=== PATIENT | male | born 1950 | race Caucasian/White ===

== ENCOUNTER 2017-07-01 11:45 | Inpatient (IN) ==
[2017-07-01] MEDS ORDERED: TYLENOL PO PRN (14:39)
[2017-07-01] MEDS ORDERED: ZOFRAN IV PRN (14:39)
[2017-07-01] MEDS ORDERED: VENTOLIN HFA INH PRN (14:46)
[2017-07-01 15:19] LABS: MANUAL DIFF NEEDED? NO
[2017-07-01 15:21] LABS: BASO% 0.6 % (0.0-0.8); EOS# 0.12 X1000 (0.0-0.7); EOS% 1.3 % (0.0-10.0); HEMATOCRIT 45.1 % (42.0-52.0); HEMOGLOBIN 14.7 g/dL (14.0-18.0); IMM GRAN# 0.02 X1000 (0.0-0.04); IMM GRAN% 0.2 % (0.0-0.5); LYMPH# 2.26 X1000 (1.2-3.4); LYMPH% 25.1 % (20.5-51.1); MCH 31.3 PG (27-31); MCHC 32.6 g/dL (33-37); MONO# 0.67 X1000 (0.11-0.59); MONO% 7.5 % (1.7-9.3); MPV 12.4 FL (7.4-10.4); NEUT% 65.3 % (42.2-75.2); PLT 217 X1000 (130-400)
[2017-07-01 15:43] LABS: ALBUMIN 3.8 g/dL (3.5-5.0); CALCIUM 8.7 mg/dL (8.8-10.2); POTASSIUM 3.9 mmol/L (3.5-5.1); TOTAL BILIRUBIN 0.9 mg/dL (0.20-1.00); TOTAL PROTEIN 7.3 g/dL (6.3-8.3)
--- NOTE | 2017-07-01 15:55 | Diag Imaging Result Doc PS360 ---
EXAM: CHEST-2 VIEWS HISTORY: CHF exac TECHNIQUE: Two views COMPARISON: 12/26/2016 FINDINGS: The lungs are well expanded. The heart is enlarged. There are increased interstitial markings in the mid lungs. No pleural effusions. No consolidation. IMPRESSION: Cardiomegaly with recurrent pulmonary edema versus fibrosis Electronically signed by Yared Dubose 07/01/2017 3:53 PM
--- NOTE | 2017-07-01 15:59 | EKG Report ---
Test Performed on : 07/01/2017 3:19:16 PM Test Reason : chf exac Blood Pressure : / mmHG Vent. Rate : 116 BPM Atrial Rate : 116 BPM P-R Int : 152 ms QRS Dur : 112 ms QT Int : 346 ms P-R-T Axes : 046 -14 122 degrees QTc Int : 480 ms Sinus tachycardia. Inferior infarct (cited on or before 26-DEC-2016) Possible Anterior infarct , age undetermined T wave abnormality, consider lateral ischemia Abnormal ECG When compared with ECG of 26-DEC-2016 15:21, premature ventricular complexes. are no longer present T wave inversion less evident in Lateral leads Confirmed by Ron Castillo MD ([id number]) on 07/04/2017 1:04:52 PM
[2017-07-01] MEDS ORDERED: LASIX PO ONE (16:31)
[2017-07-01] MEDS: LASIX IV SCH ×2 (16:44→20:44)
[2017-07-01] MEDS ORDERED: ALDACTONE PO ONE (16:50)
[2017-07-01] MEDS ORDERED: LACTULOSE PO PRN (16:57)
[2017-07-01] MEDS: MIRALAX PO SCH (17:35)
[2017-07-01] MEDS: NICODERM PATCH TD PRN (17:42)
--- NOTE | 2017-07-01 18:07 | HISTORY AND PHYSICAL ---
CHIEF COMPLAINT: Shortness of breath. HISTORY OF PRESENT ILLNESS: This is a 67-year-old white male presenting with progressive shortness of breath over the last several days. This has probably been going on for probably several weeks. He has been titrating up on his Lasix on his own. He is up to 60 mg and 40 mg. He was seen in the office today. I think this was a follow-up visit and was still short of breath, hypoxic, and had not improved on increasing doses of diuretics, so he was directly admitted for treatment. He is also complaining of sinus congestion, difficulty bringing up secretions and reported constipation, too, for about a month ago. He does have heart failure, but he has not seen a suppository molding machine operator in 2 years[address] He has seen Dr[address] Barreto in the past. His ejection fraction from echo in 2014 was about 25%, but he is not on really any maintenance drugs for CHF and has not been compliant with diet or anything from that standpoint. He was seen in the [facility] by Licha Saez, the nurse practitioner and then directly admitted. PAST MEDICAL HISTORY: 1. Systolic heart failure. 2. Likely COPD. 3. Hypertension. SOCIAL HISTORY: He does smoke about half a pack a day, but he has got about a 50 pack-year history of smoking. He does drink. At least he did drink for about 20 years, but he has not drank in many years now. Lives with . 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 ALLERGIES: No known drug allergies. REVIEW OF SYSTEMS: Palpitations, orthopnea, shortness of breath. Otherwise all 10 systems reviewed and are negative. PHYSICAL EXAMINATION: VITAL SIGNS: Blood pressure 102/87, heart rate 118, respiratory rate 22, temperature degrees 98.2, 98% on 2 L. GENERAL: This is a well-developed male, in mild respiratory distress associated with difficulty breathing. HEENT: Pupils equal, round, reactive to light. Extraocular movements intact. EAR/NOSE/THROAT: Moist mucous membranes. NECK: Supple. CARDIOVASCULAR: Regular rate and rhythm. No murmurs, gallops, or rubs. PULMONARY: Bilateral breath sounds. Clear to auscultation. GI: Soft, nontender, nondistended. Bowel sounds positive. DIAGNOSTIC DATA: Normal CBC. Chemistries: Creatinine 1.2. BNP of 5657, troponin 0.016. Chest x-ray showed cardiomegaly and interstitial edema. EKG: Nonspecific changes, although questionable changes for an inferior OR, although he had did not have consuelo Q-waves. ASSESSMENT: A 57-year-old male with history of congestive heart failure, presenting with acute congestive heart failure exacerbation, but has not really been compliant with medications previously. 1. Congestive heart failure exacerbation. Acute systolic, decompensated. We will continue Lasix for diuretic, strict input and output, daily weights, monitor on telemetry. Check serial cardiac enzymes. Obtain echocardiogram. I am going to get him roped in with another suppository molding machine operator just because I think he needs fine tuning and he may need an ischemic workup additionally. We will start an JOSEFINA inhibitor and Aldactone. He does have symptoms consistent with stage IV heart disease, but again, he has really not been appropriately treated either by his own accord. 2. Hypertension. At this point he is on the hypotensive side. We will monitor closely on his several medications. 3. Increasing abdominal girth, elevated liver enzymes. I am concerned about passive venous congestion, although other etiologies are possible. We will get an abdominal ultrasound, follow his liver enzymes and test accordingly based on those findings. I will start some bowel medications as well. DISPOSITION: Pending his clinical status. cc: MD Licha Barragan CRNP
[2017-07-01] MEDS: DUONEB (A & A) INH PRN ×2 (19:24→23:13)
[2017-07-01] MEDS: LOPRESSOR PO SCH (20:45)
[2017-07-02 06:57] LABS: AGAP 13; ALBUMIN 3.7 g/dL (3.5-5.0); ALKALINE PHOSPHATASE 118 U/L (32-122); BUN 18 mg/dL (8-22); CALCIUM 8.6 mg/dL (8.8-10.2); CHLORIDE 101 mmol/L (98-107); COSMO 281; GOT 22 U/L (10-34); GPT 37 U/L (10-44); POTASSIUM 3.8 mmol/L (3.5-5.1); SODIUM 139 mmol/L (136-145); TCO2 25 mmol/L (25-35); TOTAL PROTEIN 6.5 g/dL (6.3-8.3)
[2017-07-02 07:08] LABS: HEMATOCRIT 43.6 % (42.0-52.0); HEMOGLOBIN 13.7 g/dL (14.0-18.0); MCH 30.4 PG (27-31); MCHC 31.4 g/dL (33-37); MCV 96.9 FL (81-99); MPV 12.9 FL (7.4-10.4); RBC 4.5 XMIL (4.7-6.1)
[2017-07-02] MEDS: DUONEB (A & A) INH PRN ×2 (07:11→12:21)
[2017-07-02] MEDS: SYMBICORT 80/4.5 MICROGM INHALER INH SCH (08:45)
[2017-07-02] MEDS: LOPRESSOR PO SCH (08:57)
[2017-07-02] MEDS: LASIX IV SCH ×2 (08:57→21:13)
[2017-07-02] MEDS: ASPIRIN EC PO SCH (08:57)
[2017-07-02] MEDS: MIRALAX PO SCH (08:57)
[2017-07-02] MEDS: PRINIVIL PO SCH (08:57)
--- NOTE | 2017-07-02 09:17 | Diag Imaging Result Doc PS360 ---
US ABDOMEN-COMPLETE - 07/02/2017 INDICATION: abdominal pain TECHNIQUE: Ford scale, color Doppler, and duplex evaluation of the abdomen was performed. COMPARISON: None FINDINGS: The liver appears heterogeneous in echotexture. No focal masses are appreciated. The IVC and aorta appear normal. The pancreas is unremarkable. The gallbladder is free of stones and sludge has a normal caliber wall. The common bile duct measures 4 mm. The portal vein is patent with hepatopetal flow. Spleen is unremarkable. The kidneys appear normal bilaterally. There is no hydronephrosis. IMPRESSION: Heterogeneous liver echotexture. No cholelithiasis. Electronically signed by Paulina Steward 07/02/2017 9:15 AM
--- NOTE | 2017-07-02 12:26 | Diag Imaging Result Doc PS360 ---
EXAM: ABDOMEN FLAT/UPRIGHT HISTORY: pain TECHNIQUE: Two views COMPARISON: None. FINDINGS: There is minimal gaseous distention of transverse colon. Distal gas is present. No small bowel dilatation is appreciated. There is no mass effect. No free air beneath hemidiaphragm. IMPRESSION: Minimal gaseous distention of transverse colon. No evidence for obstruction. Electronically signed by Paulina Steward 07/02/2017 12:24 PM
[2017-07-02] MEDS ORDERED: DOBUTAMINE 500/D5W 500 MG/250 ML IV.SOLN IV SCH (15:52)
--- NOTE | 2017-07-02 16:31 | CONSULTATION ---
DATE OF CONSULTATION: 07/02/2017 INDICATION: Acute systolic heart failure. HISTORY OF PRESENT ILLNESS: Mr. Irby is a 67-year-old white male with a history of a cardiomyopathy previously followed by Dr. Barreto with last visit in the office in July 2015. At that time the patient was initiated on spironolactone, Losotron and metoprolol and advised to undergo cardiac catheterization. This was never performed. He subsequently presented here for evaluation of shortness of breath and lower extremity edema that seems to be persisting and worsening over the last 2-3 weeks. He reports compliance with his Lasix at home but it does not seem he is taking any of his other cardiac medications. His last ejection fraction was 25% in 2014. Is not having any episodes of chest pain. He reports some issues with orthopnea. PAST MEDICAL HISTORY: 1. Systolic heart failure of undetermined etiology. 2. Likely COPD. 3. Hypertension. SOCIAL HISTORY: He continues to smoke and has done so for at least a 50 pack year history. He has not used alcohol for some time. 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 REVIEW OF SYSTEMS: 10 system review of systems is negative. FAMILY HISTORY: Significant for hypertension. PHYSICAL EXAMINATION: Vital signs: Patient is afebrile. Heart rates in the 70s to 80s. His blood pressure most recently was 102/60. His presenting blood pressure was 117/78. His I's and O's thus far this hospitalization have been -800 mL with 2 voids not measured and poor intake reported. General: He is in no acute distress. HEENT: Oropharynx is moist. Normal dentition. Eye examination shows pink conjunctivae. White sclerae. Neck: Examination shows no obvious thyromegaly or thyroid tenderness. Cardiovascular: He sounds to be in a regular rate and rhythm. He has a laterally displaced PMI. He has 2+ lower extremity edema. Cool extremities. His JVP does appear to be distended. No obvious murmurs. Chest: Exam sounds relatively clear. No increased work of breathing. Abdomen: Soft, nontender. No obvious organomegaly. Skin Exam: Cool and dry in the distal extremities. He has no obvious rashes. Neurologic: Moving all extremities well. Cranial nerves 2-12 intact without any sensation deficits. PERTINENT DATA: His EKG on presentation shows sinus tach rate of 116 beats per minute. His ultrasound abdomen shows a heterogenous liver, no cholelithiasis. His abdomen flat and upright demonstrates minimal gaseous distention of the transverse colon, no evidence of obstruction. His echocardiogram from July 2015 shows an EF 25, LV end-diastolic dimension of 7.8, left atrial dimension of 4.6, aortic root at 4 cm. Moderate mitral regurgitation. White count 7.8, hematocrit 43.6, platelet count 210,000, sodium 139, potassium 3.8, his BUN is 118, creatinine is 1.1. ProBNP yesterday was 5657. Cardiac enzymes negative. His LFTs were minimally elevated yesterday. ASSESSMENT: Acute on chronic systolic heart failure. PLAN: Patient has had some issues with compliance as an outpatient. He seems to be markedly volume overloaded. In addition, he has evidence of poor perfusion of his distal extremities. We will plan on transferring him over to the unit. I will discontinue his beta rico as he was not on one on presentation. We will initiate inotrope at a dose of dobutamine 3 mcg per kilogram per minute. Will try to improve his renal perfusion, will continue on current rate of diuresis. I agree with the addition of the lisinopril. We will continue to follow. His echocardiogram shows a severely reduced ejection fraction with a dilated left ventricle and possibly severe mitral regurgitation that seems secondary to prominent LV dilatation. cc: Jacobo Rojo MD
--- NOTE | 2017-07-02 18:54 | ECHO REPORT ---
ORDER DATE: 07/01/2017 MEASUREMENTS: Left ventricular end-diastolic diameter 7.5, end-systolic diameter 6.9, septal thickness 1.1. Aortic root 3.4, left atrium 4.7. SUMMARY: 1. Minimal aortic valve sclerosis demonstrated with normal aortic valve opening evident. Mitral valve leaflets are without structural abnormality with somewhat restrictive mitral valve closure in setting of severe left ventricular enlargement. There is moderately severe, posteriorly directed mitral regurgitation. Tricuspid and pulmonic valves are without evidence of structural abnormality with mild to moderate tricuspid regurgitation and mild pulmonic insufficiency. The estimated systolic PA pressure by Doppler is 55 mmHg. Estimated PA diastolic pressure is 30 mmHg. The aortic root is normal size. 2. Severe left ventricular enlargement with normal wall thickness demonstrated. Estimated left ejection fraction is 15 to 20% in setting of akinesis of the basal to mid inferoseptal wall, akinesis of the basal to mid inferior wall and akinesis of the basal to mid inferolateral wall. The remainder of the left ventricle is severely hypokinetic. Intravenous echo contrast agent Definity utilized to enhance endocardial definition. There is no evidence of left ventricular thrombus. Left atrium is [id number] enlarged. Right atrium is mildly enlarged. Right ventricle is mildly enlarged with mildly reduced right ventricular systolic function. 3. No pericardial effusion. 4. Appearance of inferior vena cava suggests elevated central venous pressure. cc: MD Wayne Jarvis MD
[2017-07-02] MEDS: NICODERM PATCH TD PRN (18:56)
[2017-07-02] MEDS: DOBUTAMINE 250 MG/D5W 250 MG/250 ML IV.SOLN IV SCH (20:24)
[2017-07-02] MEDS ORDERED: FLEXERIL PO PRN (20:38)
[2017-07-03 06:53] LABS: CALCIUM 8.3 mg/dL (8.8-10.2); MAGNESIUM 2.1 mg/dL (1.5-2.7); POTASSIUM 3.1 mmol/L (3.5-5.1)
[2017-07-03] MEDS: MIRALAX PO SCH (08:27)
[2017-07-03] MEDS: LASIX IV SCH ×2 (08:27→21:09)
[2017-07-03] MEDS: LANOXIN PO SCH (08:27)
[2017-07-03] MEDS: ASPIRIN EC PO SCH (08:27)
[2017-07-03] MEDS: DOBUTAMINE 250 MG/D5W 250 MG/250 ML IV.SOLN IV SCH ×3 (08:27→22:48)
[2017-07-03] MEDS: DUONEB (A & A) INH PRN (09:05)
[2017-07-03] MEDS: SYMBICORT 80/4.5 MICROGM INHALER INH SCH (09:05)
[2017-07-03] MEDS: PRINIVIL PO SCH (13:02)
[2017-07-03] MEDS ORDERED: KLOR-CON PO ONE (13:12)
--- NOTE | 2017-07-03 14:12 | PROGRESS NOTE ---
DATE: 07/03/2017 SUBJECTIVE: The patient is still short of breath but overall improved. OBJECTIVE: Blood pressure is 110/64, heart rate of 92, respiratory rate 23, temperature 97.7, saturation 97% on 2 L. Cardiovascular: Regular rate and rhythm. Pulmonary: Bilateral breath sounds diminished at the bases. GI: Soft, nontender and nondistended. Bowel sounds were positive. DIAGNOSTIC DATA: Potassium is down to 3.1. ProBNP is 3370, but that is down from 5657. ASSESSMENT: 1. Acute congestive heart failure exacerbation, systolic. He seems to be improving. Cardiology has initiated dobutamine. He is still on Lasix. He is on an JOSEFINA inhibitor. He is on Aldactone. We will follow. His echocardiogram showed an EF of 15% to 20% which is actually a little worse than previously. He does have some akinesis, so he will likely need a left heart cath ischemic evaluation per Cardiology recommendations. I think that will be done as an outpatient. 2. Chronic obstructive pulmonary disease, mild. We will continue to monitor. 3. Hypertension. Appears to be stable. 4. Elevated liver enzymes. His ultrasound was really unremarkable. I think this is probably venous congestion. We will just continue to monitor and follow closely. DISPOSITION: Pending clinical workup. Probably home Wednesday or per Cardiology recommendation. cc: Wayne Gruber MD
[2017-07-03] MEDS ORDERED: [UNRECOGNIZED DRUG - OTHER] IV ONE (16:30)
[2017-07-03] MEDS: NATRECOR 1.5 MG in NS 250 ML IV SCH (16:55)
--- NOTE | 2017-07-03 17:39 | PROGRESS NOTE ---
DATE: 07/03/2017 CHIEF COMPLAINT: Shortness of breath. SUBJECTIVE: Mr. Irby was transferred last night to ICU for IV dobutamine management. He is not very comfortable. He has not slept well. He does not feel like his breathing is a whole lot better. He denies having any chest pain at this time. OBJECTIVE: Vital signs: Blood pressure is presently 108/60, temperature 97.8, pulse 98, respirations 19. General: He is awake, in no distress. HEENT: Unremarkable. Chest: Somewhat decreased breath sounds at the bases. Cardiac: Heart sounds are regular and rhythmic. I do not believe there is any significant gallop or murmur. Abdomen: Obese, distended, tympanitic. Extremities: Showed somewhat decreased pulses. Trace edema bilaterally. Neurologic: Follows commands, moves four extremities. LABORATORY DATA: Sodium today 137, potassium 3.1, BUN 19, creatinine 1.2. ProBNP has come down to 3370. His initial chest x-ray on presentation was reported as indicating cardiomegaly with pulmonary edema versus fibrosis. His echocardiogram, read by Dr. Flores 2 days ago, showed severe LV dysfunction, ejection fraction 15-20%, with akinesis of the basal to mid inferoseptal wall. Right atrium mildly enlarged. Right ventricle mildly enlarged. No pericardial effusion. There was moderately severe mitral regurgitation. IMPRESSION: 1. Patient who presents with decompensation of chronic systolic heart failure. 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 2. History of being a former smoker. 3. History of hypertension. RECOMMENDATIONS: At this point in time I would suggest to add IV Natrecor to his regimen and see how he does with that. His prognosis is really very guarded especially with an ejection fraction as low as his appears to be. We will follow him along. He would certainly benefit by ischemic workup, however, the first thing that we need to make sure is whether or not he has significant myocardial viability and that would probably require some outpatient testing. Further advice will be forthcoming. cc: Chau Molina MD
[2017-07-03] MEDS: NICODERM PATCH TD SCH (17:42)
[2017-07-03] MEDS ORDERED: NICODERM PATCH TD SCH (18:00)
[2017-07-03] MEDS: ALDACTONE PO SCH (21:09)
[2017-07-04 06:04] LABS: HEMATOCRIT 44.3 % (42.0-52.0); HEMOGLOBIN 14.5 g/dL (14.0-18.0); MCH 31.6 PG (27-31); MCHC 32.7 g/dL (33-37); MCV 96.5 FL (81-99); MPV 12.8 FL (7.4-10.4); RBC 4.59 XMIL (4.7-6.1)
[2017-07-04 06:38] LABS: CALCIUM 8.4 mg/dL (8.8-10.2); MAGNESIUM 2.1 mg/dL (1.5-2.7); POTASSIUM 3.5 mmol/L (3.5-5.1)
[2017-07-04 07:04] LABS: ALBUMIN 3.4 g/dL (3.5-5.0); ALKALINE PHOSPHATASE 109 U/L (32-122); DIRECT BILIRUBIN < 0.20 mg/dL (0.00-0.20); GOT 16 U/L (10-34); GPT 27 U/L (10-44); TOTAL PROTEIN 6.7 g/dL (6.3-8.3)
[2017-07-04] MEDS: DUONEB (A & A) INH PRN ×3 (08:24→19:48)
[2017-07-04] MEDS: SYMBICORT 80/4.5 MICROGM INHALER INH SCH (08:25)
[2017-07-04] MEDS: MIRALAX PO SCH (08:48)
[2017-07-04] MEDS: NICODERM PATCH TD SCH (08:48)
[2017-07-04] MEDS: LASIX IV SCH ×2 (08:48→20:22)
[2017-07-04] MEDS: LANOXIN PO SCH (08:49)
[2017-07-04] MEDS: ALDACTONE PO SCH ×2 (08:49→20:22)
[2017-07-04] MEDS: PRINIVIL PO SCH (08:49)
[2017-07-04] MEDS: ASPIRIN EC PO SCH (08:49)
[2017-07-04] MEDS: KLOR-CON PO SCH (08:49)
[2017-07-04] MEDS: DOBUTAMINE 250 MG/D5W 250 MG/250 ML IV.SOLN IV SCH ×2 (10:53→13:15)
--- NOTE | 2017-07-04 12:44 | PROGRESS NOTE ---
DATE: 07/04/2017 CHIEF COMPLAINT: Shortness of breath. SUBJECTIVE: Mr. Irby has done relatively better overnight with infusion of Natrecor. He is not having any chest pain. He has diuresed properly. He has lost about 9 pounds. OBJECTIVE: His blood pressure today is 96/72, temperature 97.7, pulse 96, respirations 18. He is awake, alert and oriented, in better disposition than yesterday. HEENT: Slight prominence of jugular veins. Chest: Today sounds very clear to auscultation and percussion. Heart sounds are regular and rhythmic. I do not hear any gallop or murmur. Abdomen: Nontender. Extremities: Trace edema. Neurologic: Follows commands. Moves all 4 extremities. DIAGNOSTIC DATA: Today sodium is 138, potassium 3.5, BUN is 17, creatinine 1.2. ProBNP has dropped to 1840. His liver tests are fine. Hemoglobin is 14.5. IMPRESSION: 1. The patient presented with exacerbation of chronic systolic heart failure. 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 2. History of hypertension. 3. Former smoker. RECOMMENDATIONS: At the current time, I would suggest to continue Natrecor for another 24 to 48 hours. Perhaps by 07/06/2017, he may be ready to go home and then arrange for outpatient testing including cardiac catheterization and viability study as to determine whether or not he may benefit from revascularization. At this point in time, he has gotten an order for spironolactone, and hopefully his potassium will stabilize. We will continue to follow him. cc: Chau Molina MD
[2017-07-04] MEDS: NATRECOR 1.5 MG in NS 250 ML IV SCH (13:15)
--- NOTE | 2017-07-04 15:32 | PROGRESS NOTE ---
DATE: 07/04/2017 SUBJECTIVE: Patient has no focal complaints. OBJECTIVE: Vital signs: Blood pressure 96/72, heart rate 96, respiratory rate 18, temperature 97.7 degrees, 95% on 2 L. Cardiovascular: Regular rate and rhythm. Pulmonary: Bilateral breath sounds. Clear to auscultation. GI: Soft, nontender, nondistended. Bowel sounds are positive. LABORATORY DATA: His white count is 9, hemoglobin and hematocrit are 14 and 44, platelets 190,000. Creatinine 1.2. BNP is down to 1,840. PROBLEM LIST: 1. Acute congestive heart failure exacerbation, systolic. We will continue Lasix. He is also now on nesiritide and dobutamine. Will continue to monitor. Possibly home in the next 1-2 days. He will need outpatient left heart catheterization. 2. Hypertension. Appears to be stable. 3. Tobacco abuse. We counseled on limitations, so we will continue to follow. DISPOSITION: Pending his clinical status. Obviously he is in the ICU now on the dobutamine and nesiritide. cc: Wayne Gruber MD
[2017-07-04] MEDS: LOVENOX SUBQ SCH (16:55)
[2017-07-05] MEDS: DOBUTAMINE 250 MG/D5W 250 MG/250 ML IV.SOLN IV SCH (01:07)
[2017-07-05] MEDS: DUONEB (A & A) INH PRN ×3 (05:10→14:28)
[2017-07-05 05:49] LABS: HEMATOCRIT 45.1 % (42.0-52.0); HEMOGLOBIN 14.2 g/dL (14.0-18.0); MCH 30.2 PG (27-31); MCHC 31.5 g/dL (33-37); RBC 4.7 XMIL (4.7-6.1)
[2017-07-05 06:14] LABS: AGAP 13; BUN 17 mg/dL (8-22); CALCIUM 8.4 mg/dL (8.8-10.2); CHLORIDE 100 mmol/L (98-107); COSMO 274; MAGNESIUM 2.1 mg/dL (1.5-2.7); POTASSIUM 3.9 mmol/L (3.5-5.1); SODIUM 136 mmol/L (136-145); TCO2 23 mmol/L (25-35)
[2017-07-05] MEDS: PRINIVIL PO SCH (08:30)
[2017-07-05] MEDS: LASIX IV SCH (08:30)
[2017-07-05] MEDS: MIRALAX PO SCH (08:32)
[2017-07-05] MEDS: NICODERM PATCH TD SCH (08:32)
[2017-07-05] MEDS: ASPIRIN EC PO SCH (08:32)
[2017-07-05] MEDS: ALDACTONE PO SCH ×2 (08:32→21:49)
[2017-07-05] MEDS: LANOXIN PO SCH (08:32)
[2017-07-05] MEDS: KLOR-CON PO SCH (08:33)
[2017-07-05] MEDS: SYMBICORT 80/4.5 MICROGM INHALER INH SCH (09:19)
[2017-07-05] MEDS: NATRECOR 1.5 MG in NS 250 ML IV SCH (15:30)
--- NOTE | 2017-07-05 15:33 | PROGRESS NOTE ---
DATE: 07/05/2017 SUBJECTIVE: Mr. Irby has done well overnight, he has lost about 12 pounds with diuresis being - 3757 approximately. He denies any chest pain, any palpitations, any shortness of breath. OBJECTIVE: Vital Signs: Blood pressure is 100/45 with a heart rate of 86, respirations are 16, temperature is 98.2 degrees with O2 saturations of 96-98% on 2 L nasal cannula. HEENT: Head is normocephalic, atraumatic. Pupils equal, round, react to light. EOMs are intact. Sclerae anicteric. Mucous membranes are moist. Neck: Supple. Trachea midline. Cardiovascular: Regular rate and rhythm. S1 and S2 are appreciated. No gallops or murmurs noted. Pulmonary: Breath sounds are clear with no increased work of breathing noted. Chest does rise and fall symmetric respiration. Gastrointestinal: Abdomen soft, nontender, nondistended with bowel sounds in all 4 quadrants. Extremities: No clubbing, cyanosis. He does have some trace pretibial edema. Calves nontender. Pulses palpable x4. Neurologic: He is alert and oriented x3. Cranial nerves 2-12 grossly intact. DIAGNOSTICS: WBC is 6.9 with hemoglobin 14.2, hematocrit 45.1 and platelets of 204,000. Sodium is 136, potassium 3.9, BUN 17, creatinine 1.1 with a glucose of 99. IMPRESSION: 1. Chronic systolic heart failure acute exacerbation. 2. History of hypertension. 3. Prior tobacco use. Will continue monitoring in ICU continuing dobutamine and nesiritide, continue with a strict I and O, trending vital signs, continue nicotine patch as well as potassium supplements and spironolactone. Further treatments pending hospital course. Dictated by SMOOTH Perez for Yehuda Ovalles MD cc: SMOOTH Preez MD
[2017-07-05] MEDS ORDERED: ATIVAN PO PRN (16:18)
--- NOTE | 2017-07-05 16:51 | PROGRESS NOTE ---
DATE: 07/05/2017 SUBJECTIVE: Patient denies chest discomfort or dyspnea, on supplemental oxygen per nasal cannula. OBJECTIVE: Vital Signs: Blood pressure 95/60 currently. The patient's blood pressure low earlier today and Lasix was held. Heart rate 98-100 with ECG monitor showing sinus rhythm. Oxygen saturation 97% on nasal cannula oxygen at 2 L/minute. Neck: Jugular venous pressure appears to be normal on inspection neck veins. Chest: Clear to auscultation. Cardiac Exam: Reveals a regular rate and rhythm without appreciable gallop. Extremities demonstrate mild trace edema without appreciable gallop. LABORATORY DATA: Demonstrates a BUN 17, creatinine 1.1, potassium 3.9. Echocardiography demonstrates severe left ventricular enlargement with severely depressed left ventricular systolic function with akinesis of basal to mid inferoseptal region, basal to mid inferior wall and basal to mid inferolateral region. Prior extensive inferior infarct to suggest it. Moderate to severe mitral regurgitation is also present. IMPRESSION: 1. Acute on chronic systolic heart failure improving with diuresis. 2. Severe ischemic cardiomyopathy. 3. Hypertension. 4. Chronic cigarette use ongoing up until day of admission. RECOMMENDATIONS: 1. Patient desires to get out of intensive care unit and given sufficient improvement congestive heart failure, will discontinue dobutamine and Natrecor. 2. Add low-dose beta rico. 3. Reduce Lasix dose. 4. Smoking cessation strongly advised. 5. The patient counseled at length regarding need for definitive evaluation of his severe ischemic cardiomyopathy to determine the appropriate course of management. Severe degree of his left ventricular enlargement is certainly concerning that he may have limited options for effective revascularization. However, his prognosis is certainly concerning and the life- threatening nature of his condition was stressed him. 6. Add low-dose anxiolytic. cc: Heladio Flores MD
[2017-07-05] MEDS ORDERED: DOBUTAMINE IV SCH (18:00)
[2017-07-05] MEDS ORDERED: D5W IV SCH (18:00)
--- NOTE | 2017-07-05 20:42 | PROGRESS NOTE ---
DATE: 07/05/2017 SUBJECTIVE: Patient seen. States that he is feeling a little bit better. He is having less cough and shortness of breath. He denies any fevers or chills. OBJECTIVE: Vital signs: Stable. His heart rate is stable. General: Thankfully the patient is awake and alert. Heart: Regular rate. Chest: Seems relatively clear. LABORATORY DATA: His BNP is actually down from 5627 to 1840. Currently pending today. PLAN: Will continue patient on Natrecor and dobutamine per Cardiology. Hopefully this can be transitioned off over the next day or two and he can be discharged home. cc: Yehuda Ovalles MD
[2017-07-05] MEDS: LOVENOX SUBQ SCH (21:49)
[2017-07-06 06:40] LABS: HEMATOCRIT 44.3 % (42.0-52.0); HEMOGLOBIN 14.1 g/dL (14.0-18.0); MCH 30.7 PG (27-31); MCHC 31.8 g/dL (33-37); MCV 96.3 FL (81-99); RBC 4.6 XMIL (4.7-6.1)
[2017-07-06 06:44] LABS: AGAP 12; BUN 17 mg/dL (8-22); CALCIUM 8.6 mg/dL (8.8-10.2); CHLORIDE 99 mmol/L (98-107); COSMO 270; SODIUM 134 mmol/L (136-145); TCO2 23 mmol/L (25-35)
[2017-07-06] MEDS: DUONEB (A & A) INH PRN ×2 (07:42→15:06)
[2017-07-06] MEDS: SYMBICORT 80/4.5 MICROGM INHALER INH SCH (07:42)
[2017-07-06] MEDS ORDERED: PRINIVIL PO SCH (09:00)
[2017-07-06] MEDS ORDERED: LASIX IV SCH (09:00)
[2017-07-06] MEDS ORDERED: TOPROL XL PO SCH (09:00)
[2017-07-06] MEDS ORDERED: TOPROL XL PO ONE ×2 (09:05→11:45)
[2017-07-06] MEDS: MIRALAX PO SCH (10:18)
[2017-07-06] MEDS: ASPIRIN EC PO SCH (10:19)
[2017-07-06] MEDS: LANOXIN PO SCH (10:19)
[2017-07-06] MEDS: KLOR-CON PO SCH (10:19)
[2017-07-06] MEDS: ALDACTONE PO SCH (10:19)
[2017-07-06 14:59] VITALS: BP 117/65
[2017-07-06] MEDS ORDERED: LOPRESSOR PO ONE (15:00)
--- NOTE | 2017-07-07 07:13 | DISCHARGE SUMMARY ---
ADMISSION DATE: 07/01/2017 DISCHARGE DATE: 07/06/2017 DISCHARGE DIAGNOSES: 1. Acute congestive heart failure exacerbation. 2. Hypertension. 3. Likely chronic obstructive pulmonary disease. ADMISSION DIAGNOSES: 1. Acute congestive heart failure exacerbation. 2. Hypertension. 3. Likely chronic obstructive pulmonary disease. 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 He got upset with his last plastic frame inserter and just decided to stopped taking treatment. He has a CHF exacerbation. He was placed on IV Lasix. Serial enzymes. I initially put him on some JOSEFINA inhibitor, Aldactone, low-dose Lopressor. Cardiology was consulted. There was some concern over possible passive venous congestion but his abdominal ultrasound was negative, although the liver was heterogenous in echotexture. Dr. Jacobo Rojo evaluated the patient. [place] that he would benefit from dobutamine. He was transferred to the ICU for a dobutamine infusion in addition to his Lasix. Dr. Molina saw the patient. The EF was about 15-20%, akinesis. There was a need for a left heart catheterization but felt it could be done as an outpatient once he had stabilized. Dr. Molina recommended the addition of IV Natrecor and he clinically improved. By the , he was taken off of Natrecor and dobutamine, and transferred. He was put on a low- dose beta rico, reduced Lasix. With the severe degree of left ventricular enlargement, felt that revascularization was going to be limited. He was placed on the floor on the . On the 3rd, he was breathing comfortably on room air, 95-98. Heart rate was in the 90s. Blood pressure was stable. He was felt stable for discharge. White count 7.7, platelets 193,000. His BNP was 1840. That was before the infusion of BNP. DISCHARGE MEDICATIONS: Proventil p.r.n., aspirin 81 daily, budesonide 10 daily, digoxin 125 daily, Lasix 40 daily, Toprol-XL 25 daily, and Aldactone 25 b.i.d. Additionally, he will need lisinopril 10 mg daily so we will initiate that therapy as well. DISCHARGE CONDITION: Stable. TIME SPENT: A 35 minute discharge. FOLLOWUP: [facility] and then his PCP in 1 week. cc: Wayne Gruber MD
[2017-07-07] MEDS ORDERED: TOPROL XL PO SCH (09:00)
== END 2017-07-06 17:50 | disposition home or self-care (01) ==
LOC: P.DIRADM 11:45 → SUATTDRO 11:45 → P.MEDSURG 12:48 → P.ICU 07-02 19:08 → P.MEDSURG 07-05 19:05
PROVIDERS: ATTEND Internal Medicine